=== PATIENT | female | born 1985 | race African-American/Black ===

== ENCOUNTER 2023-06-28 10:21 | Outpatient (CLI) | payer BC, SELFPAY ==
[2023-06-28 11:31] LABS: HIV 1/2 Ab P24 Ag Result Negative (Negative)
[2023-06-28 12:17] LABS: Hepatitis B Surface Antigen Negative (Negative)
[2023-06-28 12:34] LABS: Hepatitis C Virus Antibody Negative (Negative)
[2023-06-28 13:18] LABS: Rapid Plasma Reagin Non-Reactive (NonReactive)
== END 2023-06-28 10:22 | disposition home or self-care (01) ==
LOC: ANHLAB 10:22
PROVIDERS: Visit Provider Registered Nurse
DX: Z20.2 Contact with and (suspected) exposure to infections with a predominantly sexual mode of transmission (principal)
CPT/HCPCS: 36415; 86592; 86695; 86696; 86703; 86803; 87340; G0432